=== PATIENT | female | born 1975 | race African-American/Black ===

== ENCOUNTER → 2022-11-07 11:42 | Outpatient (BNVA) | payer MEDICAID, SELFPAY | PROVIDERS: PCP Nurse Practitioner Family; Visit Provider Surgery Vascular Surgery ==

== ENCOUNTER 2024-02-25 13:41 | Outpatient (REF) | payer MEDICAID, SELFPAY | END 2024-02-25 13:42 | disposition home or self-care (01) | LOC: HO.HHCL 13:41 | PROVIDERS: Visit Provider Nurse Practitioner Primary Care | DX: Z13.89 Encounter for screening for other disorder (principal) ==

== ENCOUNTER 2025-01-20 10:30 | Outpatient (REF) | payer MEDICAID, SELFPAY ==
[2025-01-20 11:30] LABS: Hematocrit 42.3 % (37.0-47.0); Hemoglobin 14.4 g/dl (12.0-16.0); Mean Corpuscular HGB Conc 34.0 g/dl (31.0-35.0); Mean Corpuscular Hemoglobin 30.9 pg (27.0-33.0); Mean Corpuscular Volume 90.8 fL (80.0-98.0); NRBC Abs Auto 0.000 X10*3/uL (0.0-0.012); NRBC Pct Auto 0.0 /100WBC (0.0-0.2); Platelet Count 403 X10*3/uL (160-400); Red Blood Count 4.66 X10*6/uL (4.20-5.50); White Blood Count 7.2 X10*3/uL (4.8-10.8)
[2025-01-20 11:58] LABS: Microalbum/Creatinine Ratio Ur 36.0 ug/mg cr (<30)
--- OUTSIDE RECORDS SUMMARY | 2025-01-20 12:06 | XMS_ITS | Clinical Summary ---
Author Organization [employer] Address [address] [facility] [address] [place] [address] Care Team Providers Care Regional Account Director Name Role Phone Mallorie Whalen MD Primary Care Pro vider Allergies Active Allergy Reactions Criticality Noted Date Comments Amoxicillin-Pot Clavulanate 03/03/19 23 Other reaction(s): TONGUE SWELLS, AMOX OKAY when adult > 10 y ago Aspartame 03/08/2022 Oxycodone-Acetaminophen 03/03/2022 Other reaction(s): nausea and vomiting [place] Extract 03/08/2022 Medications * This document contains information received from the source organization and may not represent a complete record from that organization. SUMAtriptan (Imitrex) 25 MG tablet Take 1 tablet by mouth. 05/06/19 11 Active butalbital-acet aminophen-caffe ine (Esgic) 50-325-40 MG capsule Take 1-2 capsules by mouth every 4 (four) hours. 09/03/19 22 Active ibuprofen 800 MG tablet Take 1 tablet by mouth every 8 (eight) hours. Active betamethasone dipropionate (Diprosone) 0.05 % lotion APPLY A FEW DROPS OF LOTION TO THE AFFECTED AREA(S) TOPICALLY TWICE DAILY IN THE MORNING AND AT BEDTIME. RUB IN GENTLY AND COMPLETELY. 60 mL 07/14/19 24 Active sodium chloride (Auglaize) 0.65 % nasal spray ADMINISTER 1 SPRAY INTO EACH NOSTRIL IF NEEDED FOR CONGESTION 15 mL 2 10/15/19 24 Active omega-3 acid ethyl esters (Lovaza) 1 g capsule Take 1 g by mouth Once per day. Active Ascorbic Acid (vitamin C) 250 MG tablet Take 250 mg by mouth Once per day. Active acyclovir (Zovirax) 400 MG tabletIndicatio ns:Herpes TAKE 1 TABLET BY MOUTH EVERY 12 HOURS 60 tablet 2 10/16/19 25 Active citalopram (CeleXA) 20 MG tablet TAKE 2 TABLETS BY MOUTH ONCE DAILY 60 tablet 3 10/18/19 25 Active Cholecalciferol (Vitamin D) 50 MCG (2000 UT) capsule TAKE 1 CAPSULE BY MOUTH EVERY DAY 90 capsule 10/25/19 25 Active cyanocobalamin (Vitamin B-12) 1000 MCG tabletIndicatio ns:Essential hypertension TAKE 1 TABLET BY MOUTH EVERY DAY 90 tablet 10/25/19 25 Active loratadine (Claritin) 10 MG tablet TAKE 1 TABLET BY MOUTH ONCE DAILY FOR ALLERGIES 90 tablet 10/30/19 25 Active losartan (Cozaar) 100 MG tablet Take 1 tablet (100 mg) by mouth Once per day. 90 tablet 12/16/19 25 026 Active amLODIPine (Norvasc) 10 MG tablet Take 1 tablet (10 mg) by mouth Once per day. 90 tablet 1 01/02/20 25 026 Active hydroCHLOROthia zide 12.5 MG tablet Take 1 tablet (12.5 mg) by mouth Once per day. 90 tablet 1 01/02/20 25 026 Active MAGnesium-Oxide 400 (240 Mg) MG tablet Take 1 tablet by mouth once daily 90 tablet 01/06/20 25 Active amLODIPine (Norvasc) 5 MG tabletIndicatio ns:Bilateral leg edema TAKE 1 TABLET BY MOUTH IN THE MORNING 90 tablet 09/30/19 25 025 Discontinued(D ose adjustment) magnesium oxide (Mag-Ox) 400 MG tablet TAKE 1 TABLET BY MOUTH EVERY DAY 90 tablet 10/01/19 25 025 Discontinued Active Problems Problem Noted Date Diagnosed Date Hair loss 03/17/2024 Screening for lung cancer 02/25/2024 Overview (02/25/2024): LDCT re-referred 02/25/24 Postprocedural hypoparathyroidism 01/25/2024 Assessment & Plan (03/22/2024 6:34 AM EST): - continue vitamin D supplementation History of trichomoniasis 06/11/2023 Depression with anxiety 02/16/2023 Assessment & Plan (03/22/2024 6:39 AM EST): - patient states she is stable with current pharmacotherapy and declines additional behavioral health service Assessment & Plan (02/21/2023 9:45 AM EST): During IBH Consult Inez presenting with depressed mood, loss of interests/pleasure , changes in sleep difficulty falling asleep, trouble concentrating, thoughts of worthlessness or guilt, fatigue/loss of energy, inappropriate guilt , worthlessness , difficulty concentrating and excessive worry/anxiety, difficulty controlling worry, restless/keyed up/On edge, easily fatigued, difficulty concentrating/Mind going blank , and irritability; for a period of 18+ mo, for all symptoms in the context of , relationship issues, and housing. Inez experiences anxiety symptoms on and off; housing instability and relationship with partner exacerbates symptoms. Patient reported feeling depressed since she was a kid; able to manage sx. PLAN: (check all that apply) Further services needed, but declined , Behavioral Health Integration Plan Patient Self Plan Patient to utilize skills provided in intervention , Patient to [facility] out to [facility] as [facility], Comply with medication , and Patient to reach out to [facility] as needed. Patient declined referrals for MH services; will connect with clinician during next medical appointment if needed. Overweight (BMI 25.0-29.9) 02/16/2023 Hx of antibiotic allergy 02/16/2023 Skin tag 02/16/2023 Abdominal wall mass 02/16/2023 Health care maintenance 03/08/2022 Overview (09/13/2022): Bilateral Screening Mammo BIRADS 0, inconclusive on 06/23/22 R Breast diagnostic mammo w/ US BIRADS 3 on 07/05/22; repeat 6 months Chronic pain 03/03/2022 Genital herpes simplex 03/03/2022 Overview (03/08/2022): Treats with prophylaxis acyclovir Assessment & Plan (03/22/2024 6:34 AM EST): - continue suppressive therapy with acyclovir History of parathyroidectomy 03/03/2022 Overview (03/08/2022): 2008, affecting Right parathyroid glands Essential hypertension 03/03/2022 Assessment & Plan (03/22/2024 6:33 AM EST): - home blood pressure measurements are elevated - continue working on lifestyle modifications - continue amlodipine 5 mg daily - Losartan dose will be increased to 100 mg. 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 Confirmed with psychopharmacology book that it is a supported augmenting medication. Also safe with mirtazepine. 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 Requests natural remedy Rx evening primrose oil again Educated pt pharmacy might still not fill, may need to buy OTC Hyperlipidemia 08/11/2020 Assessment & Plan (03/22/2024 6:38 AM EST): - continue [place] 3 - the benefit of statin therapy is uncertain at this time; continue lab and risk assessment periodically - work on lifestyle modifications Encounters Date Type Department Care Team Description 01/03/2025 Refill [facility] [address] [place] [address] Mallroie Whalen MD 01/01/2025 9:00 AM EST Office Visit [facility] [address] [place] [phone] Monica Collado DO Essential hypertension (Primary Dx) 01/01/2025 Travel 12/31/2024 Travel 12/31/2024 Telephone [facility] [address] [place], [place] [phone] Mallorie Whalen MD Nurse Triage 12/15/2024 Orders Only [facility] [address] [place] [address] Mallorie Whalen MD Essential hypertension (Primary Dx) 12/15/2024 Refill [facility] [address] [place] [address] Mallorie Whalen MD 11/06/2024 Travel 10/28/2024 Refill [facility] [address] [place] [address] Mallorie Whalen MD 10/24/2024 Refill [facility] [address] [place] [address] Xiang Polo MD Essential hypertension 10/24/2024 Refill [facility] [address] [place] [address] Mallorie Whalen MD Essential hypertension from Last 3 Months Immunizations Immunization Administration Dates Next Due DT (pediatric) 02/19/2001 Hep A, Adult 03/17/2024 INFLUENZA VACCINE QUADRIVALE NT RECOMBINANT PRESERVATIVE FREE RIV4 12/01/2020 Influenza Whole 12/23/2009,12/30/2007,12/04/2006 Influenza injectable quadriv alent preservative free 12/21/2021,10/28/2019,10/21/2019 Influenza, IIV3, injectable 03/23/2009 Influenza, seasonal, injecta ble, preservative free 02/26/2024 Moderna Covid-19 Vaccine 12+ 07/11/2020,06/12/19 21 Pneumococcal Conjugate PCV 20 03/17/2024 TD (adult), 2 Lf tetanus tox oid, preservative free, adsorbed 02/19/2014 Tdap 03/17/2024,05/06/2010 Family History Medical History Relation Name Comments DM2 Father Liver cancer Father alcohol,drug use Father DM2,heart disease Mother breast ca-80s Paternal Grandmother Relation Name Status Comments Father Mother Paternal Grandmother Social History Tobacco Use Types Packs/Day Years Used Date Smoking Tobacco: Every Day Cigarettes 0.3 20 Passive Smoke Exposure: Current Smokeless Tobacco: Current Tobacco Cessation:Ready to Q uit: No; Counseling Given: Yes Comments:Started smoking in 23 y of age ,until now --1 PQT a day ,smoking for 24 years--average smoking 17 cig a day . PQT a year calc 20.4 Alcohol Use Standard Drinks/Week Comments Yes 2 (1 standard drink = 0.6 oz pure alcohol) 1 glass of coctakil a day sometimes 2 Depression Answer Date Recorded Patient Health Questionnaire-9 Score 11 03/17/2024 Patient Health Questionnaire-9 Score 11 03/17/2024 Last PHQ-9: Questionnaire Data Not on file 0 03/17/2024 Housing Stability Answer Date Recorded What is your housing situation today? I have luis traylor 03/06/[address] you li ve. Do you have problems with any of the following? None of the above 03/06/2024 Food Insecurity Answer Date Recorded Within the past 12 months, y ou worried that your food would run out before you got money to buy more: Never True 03/17/2024 Within the past 12 months,th e food you bought just didn't last and you didn't have enough money to get more: Never True Transportation Answer Date Recorded In the past 12 months, has l ack of transportation kept you from medical appts, meetings, work or from getting things needed for daily living? No 03/06/2024 Utilities Answer Date Recorded In the past 12 months, has t he electric, gas, oil or water company threatened to shut off services in your home? No 03/06/2024 Depression Answer Date Recorded Patient Health Questionnaire-2 Score 3 03/17/2024 Internet Access Answer Date Recorded Internet Access Q1 Yes 03/06/2024 Internet Access Q2 Not on file 03/06/2024 Comments No Sex and Gender Information Value Date Recorded Sex Assigned at Female 12/19/2021 10:22 AM EDT Legal Sex Female 10:22 AM EDT Gender Identity Female 12/19/2021 10:22 AM EDT Sexual Orientation Straight 12/19/2021 10 :22 AM EDT Last Filed Vital Signs Vital Sign Reading Time Taken Comments Blood Pressure 150/94 01/01/2025 9:35 AM EST Pulse 94 01/01/2025 9:10 AM EST Temperature 36.7 C (98.1 F) 01/01/2025 9:10 AM EST Respiratory Rate 21 01/01/2025 9:10 AM EST Oxygen Saturation 99% 01/01/2025 9:10 AM EST Inhaled Oxygen Concentration - - Weight 81.6 kg (180 lb) 01/01/2025 9:10 AM EST Height 167.6 cm (5' 6 ) 01/01/2025 9:10 AM EST Body Mass Index 29.05 01/01/2025 9:10 AM EST Plan of Treatment Upcoming Encounters Date Type Department Care Team (Late st Contact Info) Description 01/23/2025 1:00 PM EST Clinical Support [facility] [address] [place] [phone] 03/10/2025 10:45 AM EST Office Visit [address] [address] Mallorie Whalen MD [address] [place] [phone] Health Maintenance Due Date Last Done Comments CT Colonography 1975 Colonoscopy 1973 Colorectal Cancer Screening 1975 FIT DNA/Cologuard 1975 FIT 1975 FOBT 1975 Sigmoidoscopy 1975 Family Planning (PISQ) 1988 Zoster Vaccines (1 of 2) 2023 Depression Monitoring 09/14/2024 03/17/2024, 025 Mammogram 03/03/2025 03/03/2024, 02/19, 03/01/2023, Additional history exists Alcohol/Substance Use Screening 03/17/2025 03/17/2024 SDOH Screening 03/17/2025 03/17/2024 Disability Screening 11/06/2025 11/06/2024 Tobacco Screening 01/01/2026 01/01/2025 Lipid Panel 03/17/2029 03/17/2024, 02/21, 03/03/2022, Additional history exists DTaP/Tdap/Td Vaccines (4 - Td or Tdap) 03/17/2034 03/17/2024, 02/19/2014, 05/06/2010, Additional history exists RSV Patients and Patients Aged 60 years or older (1 - 1-dose 75+ series) 2048 HIV Screening Completed 03/21/2023, 02/19, 03/01/2020 Hepatitis C Screening Completed 03/21/2023 , 03/03/2022, 03/01/2020 Cervical Cancer Screening Discontinued HPV/Cotest Discontinued 04/19/2023 Pap Smear Discontinued 04/19/2023, 04/19/2023 Hepatitis A Vaccines Aged Out 03/17/2024 No long er eligible based on patient's age to complete this topic Pneumococcal Vaccine: 50+ Years Completed 03/17/2024 COVID-19 Vaccine Completed 11/10/2024, , 12/21/2021, Additional history exists Influenza Vaccine Completed 11/10/2024, , 12/19/2022, Additional history exists HIB Vaccines Aged Out No longer eligi ble based on patient's age to complete this topic HPV Vaccines Aged Out No longer eligi ble based on patient's age to complete this topic Hepatitis B Vaccines Discontinued IPV Vaccines Aged Out No longer eligi ble based on patient's age to complete this topic Meningococcal B Vaccine Aged Out No l onger eligible based on patient's age to complete this topic Meningococcal Vaccine Aged Out No cristiane jennifer eligible based on patient's age to complete this topic RSV under 20 months Aged Out No longe r eligible based on patient's age to complete this topic Rotavirus Vaccines Aged Out No longer eligible based on patient's age to complete this topic Procedures Procedure Name Priority Date/Time Associated Diagnosis Comments ALBUMIN, RANDOM URINE W/CREATININE Routine 01/20/2025 10:39 AM EST Essential hypertension CBC Routine 01/20/2025 10:39 AM EST Essential hypertension LIPID PANEL WITH REFLEX TO DIRECT LDL Routine 03/17/2024 9:50 AM EST Essential hypertension Screening for lipid disorders BI MAMMOGRAM SCREENING TOMOSYNTHESIS BILATERAL Routine 03/03/2024 1:30 PM EST HPV MRNA E6/E7 REFLEX TO HPV 16, 18/45 Routine 04/19/2023 11:44 AM EST IMAGE-GUIDED PAP W/AGE BASED SCR,W/CT/NG/TRICH Routine 04/19/2023 11:44 AM EST Cervical cancer screening Encntr screen for infections w sexl mode of transmiss HEPATITIS C AB W/REFL TO HCV RNA, QN, PCR Routine 03/21/2023 1:39 PM EST Annual physical exam HIV 1/2 ANTIGEN/ANTIBODY, FOURTH GENERATION W/RFL Routine 03/21/2023 1:39 PM EST Annual physical exam from Last 3 Months or Most Recently Relevant to Health Maintenance Results * (ABNORMAL) Albumin, Random Urine W/Creatinine (01/20/2025 10:39 AM EST) Creatinine, Urine 110.99 mg/dL [facility] Microalbumin Urine 40.0 mg/L [facility] Microalbum Creatinine Ratio Ur 36.0(H) <30 ug/mg cr [facility] Comment:Albumin/Creatinine R atio Reference Ranges: Normal: < 30 ug/mg creatinine Microalbuminuria: 30 - 300 ug/mg creatinineClinical Albuminuria: > 300 ug/mg creatinine Urine (Urine, Random) 01/20/2025 10:39 AM EST 01/20/2025 11:20 AM EST Monica Collado DO LAB URINE ORDERABLES Final R esult [facility] [address] [place] [phone] * (ABNORMAL) CBC (01/20/2025 10:39 AM EST) White Blood Count 7.2 4.8 - 10.8 X10*3/uL [facility] Red Blood Count 4.66 4.20 - 5.50 X10*6/uL [facility] Hemoglobin 14.4 12.0 - 16.0 g/dl [facility] Hematocrit 42.3 37.0 - 47.0 % [facility] Mean Corpuscular Volume 90.8 80.0 - 98.0 fL [facility] Mean Corpuscular Hemoglobin 30.9 27.0 - 33.0 pg [facility] Mean Corpuscular HGB Conc 34.0 31.0 - 35.0 g/dl [facility] Red Cell Distribution Width 12.6 11.0 - 16.0 % [facility] Platelet Count 403(H) 160 - 400 X10*3/uL [facility] Mean Platelet Volume 10.1 9.4 - 12.3 fL [facility] NRBC Pct Auto 0.0 0.0 - 0.2 /100WBC [facility] NRBC Abs Auto 0.000 0.0 - 0.012 X10*3/uL [facility] Blood Venous blood specimen / Unknown 01/20/2025 10:39 AM EST 01/20/2025 11:24 AM EST Monica Collado DO LAB BLOOD ORDERABLES Final R esult Performing Organization Address [facility] Co de Phone Number [facility] [address] [place] [phone] * (ABNORMAL) Lipid Panel with Reflex to Direct LDL (03/17/2024 9:50 AM EST) Triglycerides 69 <150 mg/dL [facility] Comment:Desirable Triglyceri de: less than 150 mg/dLBorderline High Triglyceride 150-199 mg/dLHigh Triglyceride: 200-499 mg/dLVery High Triglyceride: greater than or equal to 5OO mg/dL Cholesterol 198 <200 mg/dL [facility] Comment:Desirable Cholestero l: less than 200 mg/dLBorderline High Cholesterol: 200-239 mg/dLHigh Cholesterol: greater than 239 mg/dL LDL Cholesterol Calculated 126(H) <100 mg/dL [facility] Comment:Desirable LDL: less than 100 mg/dLNear Optimal/Above Optimal LDL: 110- 129 mg/dLBorderline High LDL: 130-159 mg/dLHigh LDL: 160-189 mg/dLVery High LDL: greater than or equal to 190 mg/dL HDL Cholesterol 59 >40 mg/dL [facility] Comment:Desirable HDL: great er than 40 mg/dL Note: This HDL assay may give artificially low results in patients with liver disease. Blood 03/17/2024 9:50 AM EST 03/17/2024 11:25 AM EST Kelin Sawant MD LAB BLOOD ORDERABLES Final Resul t Performing Organization Address [facility] Co de Phone Number [facility] [address] [place] [phone] * BI Mammogram Screening Tomosynthesis Bilateral (03/03/2024 1:30 PM EST) Anatomical Region Laterality Modality Breast Bilateral Mammography 03/03/2024 1:30 PM EST Narrative 03/11/2024 4:25 PM EST [facility] [address] [place] [address] Mammography Report Signed Patient: Inez Dupree MR#: [id number] : 1975 Acct:[id number] Age/Sex: 48 / F ADM Date: 03/03/24 Loc: HO.MAMMO Attending Dr: Mallorie Rose MD Ordering Physician: Mallorie Whalen MD Re sults: 1Negative Date of Service: 03/03/24 Follow Up: 1 Year From Orig inal Mammogram Procedure(s): MM tomosynthesis screening BI Accession Number(s): [id number] cc: Mallorie Whalen MD EXAMINATION: MM SCREENING DIGITAL BREAST TOMOSYNTHESIS, BILATERAL CLINICAL INFORMATION: Screening. Asymptomatic. COMPARISON: Mammography: Comparison is made with available priors TECHNIQUE: Digital breast mammography with tomosynthesis is performed in both the craniocaudal and mediolateral oblique views along with computer-aided detection (CAD). FINDINGS: There are scattered areas of fibroglandular density (ACR BI-RADS breast composition Category b). There are no significant masses, abnormal calcifications, or other abnormalities. MM/MM tomosynthesis screening BI IMPRESSION: No mammographic evidence of malignancy. ASSESSMENT: BI-RADS BI-RADS 1 - Negative RECOMMENDATION: Routine annual mammography screening. 1 year F/U This examination should not preclude the clinical evaluation of a suspicious palpable abnormality. This patient's information was entered into a reminder system with a target due date for their next mammogram. Electronically signed by: Maya Lloyd DO 03/11/2024 04:22 PM [facility] Dictated By: Maya Lloyd DO Signed By: <Electronically signed by Maya Lloyd DO in OV> 03/11/24 1622 DD/ 1330 TD/TT: 03/03/24 1345 Wrecker Operator: Procedure Note Donotuseinterpreter, Image - 04/24/2024 [facility] [address] [place] [address] Dr. [place], [place] [address] Mammography Report Signed Patient: Inez Dupree BMR#: [id number] : 1975Acct:[id number] Age/Sex: 48 / FADM Date: 03/03/24 Loc: HO.MAMMO Attending Dr: Mallorie Rose MD Ordering Physician: Mallorie Whalen sults: 1Negative Date of Service: 03/03/24Follow Up: 1 Year From Orig ina Mammogram Procedure(s): MM tomosynthesis screening BI Accession Number(s): [id number] cc: Mallorie Whalen MD EXAMINATION: MM SCREENING DIGITAL BREAST TOMOSYNTHESIS, BILATERAL CLINICAL INFORMATION: Screening. Asymptomatic. COMPARISON: Mammography: Comparison is made with available priors TECHNIQUE: Digital breast mammography with tomosynthesis is performed in both the craniocaudal and mediolateral oblique views along with computer-aided detection (CAD). FINDINGS: There are scattered areas of fibroglandular density (ACR BI-RADS breast composition Category b). There are no significant masses, abnormal calcifications, or other abnormalities. MM/MM tomosynthesis screening BI IMPRESSION: No mammographic evidence of malignancy. ASSESSMENT: BI-RADS BI-RADS 1 - Negative RECOMMENDATION: Routine annual mammography screening. 1 year F/U This examination should not preclude the clinical evaluation of a suspicious palpable abnormality. This patient's information was entered into a reminder system with a target due date for their next mammogram. Electronically signed by: Maya Lloyd DO 03/11/2024 04:22 PM EST Dictated By: Maya Lloyd DO Signed By: <Electronically signed by Maya Lloyd DO in OV> 03/11/24 1622 DD/ 1330 TD/TT: 03/03/24 1345 Wrecker Operator: us Mallorie Rose MD IMG BI PROCEDURES Edited Result - Final * (ABNORMAL) Image-Guided Pap with Age-Based Screening??with CT/NG,??Trichomonas (04/19/2023 11:44 AMEST) Trichomonas (NAAT) DETECTED(A) NOT DETECTED [facility] Comment:The analytical perfo rmance characteristics of thisassay have been determined by Owned it. Themodifications have not been cleared or approved bythe FDA. This assay has been validated pursuant to theIA regulations and is used for clinical purposes.For additional information, please refer [email or web address](This link is being provided for information/educational purposes only.)THIS TEST WAS PERFORMED AT:[facility] [address] [phone] WALLACE MD CTNG Ref Lab NOT DETECTED NOT DETECTED [facility] NG Ref Lab NOT DETECTED NOT DETECTED [facility] Pap Vial 04/19/2023 11:4 4 AM EST 04/24/2023 10:15 AM EST Charisma Syed [facility] CYTOLOGY ORDERABLES F inal Result [facility] [address] [place] [phone] * HPV mRNA E6/E7 w/Reflex to HPV Genotypes 16, 18/45 (04/19/2023 11:44 AM EST) HPV nRNA E6/E7 Not Detected Not Detected [facility] Comment:Methodology: Transcr iption-Mediated AmplificationThis assay detects E6/E7 viral messenger RNA (mRNA) from 14high-risk HPV types (16,18,31,33,35,39,45,51,52,56,58,59,66,68).Cervical sources are required for HPV testing.If a vaginal source from a patient who has had atotal hysterectomy with removal of cervix wassubmitted, please contact the testing laboratoryfor alternative testing options.For additional information, please refer [email or web address](This link if provided for information/educational purposes only.)THIS TEST WAS PERFORMED AT:[facility] [address] [phone] WALLACE MD HPV mRNA E6/E7 TNP [facility] HPV 16 RNA TNP [facility] HPV 18/45 RNA [facility] 04/19/2023 11:4 4 AM EST 04/20/2023 11:30 AM EST us Charisma Syed CNM LAB CYTOLOGY ORDERABLES F inal Result Performing Organization Address [facility]/ZIP Co de Phone Number [facility] [address] [place] [phone] * Hepatitis C Antibody with Reflex to HCV, RNA, Quantitative, Real-Time PCR (03/21/2023 1:39 PM EST) Hepatitis C Antibody Nonreactive Nonreactive [facility] Comment:Antibodies to HCV no t detected; does not exclude early acuteHCV infection. Blood Venous blood specimen / Unknown 03/21/2023 1:39 PM EST 03/21/2023 4:01 PM EST us Mallorie Rose MD LAB BLOOD ORDERAB LES Final Result Performing Organization Address [facility]/ZIP Co de Phone Number [facility] [address] [place], [place] [phone] * HIV-1/2 Antigen and Antibodies, Fourth Generation, with Reflexes (03/21/2023 1:39 PM EST) HIV AB/AG Nonreactive Nonreactive [facility] Comment:HIV-1 p24 Ag and/or HIV-1/HIV-2 Ab not detected.A test result that is nonreactive does not exclude thepossibility of exposure to or infection with HIV-1 and/orHIV-2. Nonreactive results in this assay for individualswith prior exposure to HIV-1 and/or HIV-2 may be due toantigen and antibody levels that are below the limit ofdetection of this assay.The [employer] HIV Ag/Ab Combo assay result andsupplemental assay results should be interpreted inconjunction with the patient's clinical presentation,history and other laboratory results. If the results areinconsistent with clinical evidence, additional testing issuggested to confirm the result. Blood Venous blood specimen / Unknown 03/21/2023 1:39 PM EST 03/21/2023 4:01 PM EST Mallorie Rose MD LAB BLOOD ORDERAB LES Final Result [facility] [address] [place] [address] [phone] from Last 3 Months or Most Recently Relevant to Health Maintenance [facility] Care Teams Regional Account Director Relationship Specialty Start Date End Date Mallorie Whalen MD [address] [place] [id number] PCP - General Internal Medicine 02/15/23
--- OUTSIDE RECORDS SUMMARY | 2025-01-20 12:06 | XMS_ITS | Encounter Summary ---
Author Organization [employer] Address [address] [place] [address] 7 [place] [address] Care Team Providers Care Aeronautical Inspector Name Role Phone Mallorie Whalen MD Primary Care Pro vider Reason for Visit * Reason Comments Med Refill Encounter Details Date Type Department Care Team ([facility] st Contact Info) Description 08/07/2024 Refill [facility] [address] [place] [address] Mallorie Whalen MD [address] [place] [address] Social History Tobacco Use Types Packs/Day Years Used Date Smoking Tobacco: Every Day Cigarettes 0.3 20 Passive Smoke Exposure: Current Smokeless Tobacco: Current Comments:Started smoking in 23 y of age [...] Orientation Straight 12/19/2021 10 :22 AM EDT documented as of this encounter Plan of Treatment Upcoming Encounters Date Type Department Care Team (Late st Contact Info) Description 01/23/2025 1:00 PM EST Clinical Support [address] [address] 03/10/2025 10:45 AM EST Office Visit [address] [address] Mallorie Whalen MD [address] [place] [phone] documented as of this encounter Visit Diagnoses Not on filedocumented in this encounter Additional Health Concerns Assessment Noted Time PHQ-9 Depression Total Score: 11 025 9:41 AM EST documented as of this encounter Care Teams Aeronautical Inspector Relationship Specialty Start Date End Date Mallorie Whalen MD [address] [place] [id number] PCP - General Internal Medicine 02/15/23 documented as of this encounter
--- OUTSIDE RECORDS SUMMARY | 2025-01-20 12:06 | XMS_ITS | Encounter Summary ---
Author Organization [employer] Address [address] [place] [address] [address] [place] [address] Care Team Providers Care Traffic And Transport Planner Name Role Phone Cathy Fong Primary Care Provider Mallorie Donnelly MD Primary Care Pro vider Reason for Visit * Reason Comments Med Refill Encounter Details Date Type Department Care Team (Late Contact Info) Description 12/13/2022 Refill [facility] [address] [place] [id number] Cathy Fong FNP Social History Tobacco Use Types Packs/Day Years Used Date Smoking Tobacco: Every Day Cigarettes 1 20 Smokeless Tobacco: Current Alcohol Use Standard Drinks/Week Comments Yes 2 (1 standard drink = 0.6 oz pur e alcohol) Depression Answer Date Recorded Patient Health Questionnaire-9 Score 0 03/03/2022 Depression Answer Date Recorded Patient Health Questionnaire-2 Score 0 03/03/2022 Comments Unknown Sex and Gender Information Value Date Recorded Sex Assigned at Female 12/19/2021 10:22 AM EDT Legal Sex Female 10:22 AM EDT Gender Identity Female 12/19/2021 10:22 AM EDT Sexual Orientation Straight 12/19/2021 10 :22 AM EDT documented as of this encounter Plan of Treatment Upcoming Encounters Date Type Department Care Team (Late Contact Info) Description 01/23/2025 1:00 PM EST Clinical Support [facility] [address] [place] [phone] 03/10/2025 10:45 AM EST Office Visit [address] [address] Mallorie Whalen MD [address] [place] [address] documented as of this encounter Visit Diagnoses Not on filedocumented in this encounter Additional Health Concerns Assessment Noted Time PHQ-9 Depression Total Score: 0 03/03/19 23 3:24 PM EST documented as of this encounter Care Teams Traffic And Transport Planner Relationship Specialty Start Date End Date Cathy Fong FNP PCP - General Family Medicine 01/04/23 02/04/23 Mallorie Whalen MD [address] [place] [address] PCP - General Internal Medicine 02/15/23 documented as of this encounter
--- OUTSIDE RECORDS SUMMARY | 2025-01-20 12:06 | XMS_ITS ---
Author Name [facility] Organization Unknown Encounters Encounter Type Encounter Reason Primary Diagnosis Location Date Ambulatory [facility] 08/10/2022 Care Team Organization Name Specialty Phone Email Start Date End Da te [facility] [employer] NO PCP Primary Care 08/10/2022 08/10/2022 [facility] PCP,No Primary Care 08/10/2022
--- OUTSIDE RECORDS SUMMARY | 2025-01-20 12:06 | XMS_ITS | Encounter Summary ---
Author Organization [employer] Address [address] [place] [address] Care Team Providers Care Parlor Chaperone Name Role Phone Mallorie Whalen MD Primary Care Pro vider Encounter Details Date Type Department Care Team ([facility] st Contact Info) Description 08/02/2023 Orders Only [facility] [address] [place], [place] [phone] Charisma Syed, [facility] [address] [place] [address] Social History Tobacco Use Types Packs/Day Years Used Date Smoking Tobacco: Every Day Cigarettes 0.3 20 Smokeless Tobacco: Current Comments:Started smoking in 23 y of age ,until now --1 PQT a day ,smoking for 24 years--average smoking 17 cig a day . PQT a year calc 20.4 Alcohol Use Standard Drinks/Week Comments Yes 2 (1 standard drink = 0.6 oz pure alcohol) 1 glass of coctakil a day sometimes 2 Depression Answer Date Recorded Patient Health Questionnaire-9 Score 17 02/15/2023 Patient Health Questionnaire-9 Score 17 02/15/2023 Last PHQ-9: Questionnaire Data Not on file 1 04/18/2022 Housing Stability Answer Date Recorded What is your housing situation today? I have luis traylor 02/15/[address] you li ve. Do you have problems with any of the following? None of the above 02/15/2023 Food Insecurity Answer Date Recorded Within the past 12 months, y ou worried that your food would run out before you got money to buy more: Never True 02/15/2023 Within the past 12 months,th e food you bought just didn't last and you didn't have enough money to get more: Never True Transportation Answer Date Recorded In the past 12 months, has l ack of transportation kept you from medical appts, meetings, work or from getting things needed for daily living? No 02/15/2023 Utilities Answer Date Recorded In the past 12 months, has t he electric, gas, oil or water company threatened to shut off services in your home? No 02/15/2023 Depression Answer Date Recorded Patient Health Questionnaire-2 Score 6 02/15/2023 Comments No Sex and Gender Information Value [...] Description 01/23/2025 1:00 PM EST Clinical Support [facility] [address] [place] [phone] 03/10/2025 10:45 AM EST Office Visit [facility] [address] [place] [phone] Mallorie Whalen MD [address] [place] [address] documented as of this encounter Visit Diagnoses Not on filedocumented in this encounter Additional Health Concerns Assessment Noted Time PHQ-9 Depression Total Score: 17 023 3:17 PM EST documented as of this encounter Care Teams Parlor Chaperone Relationship Specialty Start Date End Date Mallorie Whalen MD [address] [place] [id number] PCP - General Internal Medicine 02/15/23 documented as of this encounter
--- OUTSIDE RECORDS SUMMARY | 2025-01-20 12:06 | XMS_ITS | Encounter Summary ---
Author Organization [id number] Address [address] [facility] 7t [place] [address] Care Team Providers Care Color Maker Name Role Phone Cathy Fong Primary Care Provider Kavya Cathy Gonzalez Primary Care Provider Kavya vaMallorie Rodriguez MD Primary Care Pro vider Encounter Details Date Type Department Care Team ([facility] Contact Info) Description 08/04/2022 Abstract [facility] [address] [place] [address] Cathy Fong FNP Social History Tobacco Use [...] Orientation Straight 12/19/2021 10 :22 AM EDT COVID-19 Exposure Response Date Recorded In the last 10 days, have yo u been in contact with someone who was confirmed or suspected to have Coronavirus/COVID-19? No / Unsure 07/11/2022 1:12 PM EDT documented as of this encounter Plan of Treatment Upcoming Encounters Date Type Department Care Team ([facility] Contact Info) Description 01/23/2025 1:00 PM EST Clinical Support [address] [address] 03/10/2025 10:45 AM EST Office Visit [address] [address] Mallorie Whalen MD [address] [place] [phone] documented as of this encounter Visit Diagnoses Not on filedocumented in this encounter Additional Health Concerns Assessment Noted Time PHQ-9 Depression Total Score: 0 03/03/19 3:24 PM EST documented as of this encounter Care Teams Color Maker Relationship Specialty Start Date End Date Cathy Fong FNP PCP - General Family Medicine 10/16/21 09/12/22 Cathy Fong FNP PCP - General Family Medicine 01/04/23 02/04/23 Mallorie Whalen MD [address] [place] [phone] PCP - General Internal Medicine 02/15/23 documented as of this encounter
--- OUTSIDE RECORDS SUMMARY | 2025-01-20 12:06 | XMS_ITS | Encounter Summary ---
Author Organization [employer] Address [address] [facility] 7 [place] [address] Care Team Providers Care Invas Tech Name Role Phone Mallorie Whalen MD Primary Care Pro vider Reason for Visit * Reason Onset Date Comments Appointment Request 02/22/2024 Encounter Details Date Type Department Care Team ([facility] st Contact Info) Description 02/22/2024 Telephone [facility] [address] [place], [place] [phone] Mallorie Whalen MD [address] [place] [address] Appointment Request Social History Tobacco Use Types Packs/Day Years [...] AM EDT documented as of this encounter Miscellaneous Notes * Telephone Encounter - Justa Franks - 02/22/2024 1:48 PM EST Tc from pt requesting call back to schedule physical appt. documented in this encounter Plan of Treatment Upcoming Encounters Date Type Department Care Team (Late st Contact Info) Description 01/23/2025 1:00 PM EST Clinical Support [address] [address] 03/10/2025 10:45 AM EST Office Visit [address] [address] Mallorie Whalen MD [address] [place] [phone] documented as of this encounter Visit Diagnoses Not on filedocumented in this encounter Additional Health Concerns Assessment Noted Time PHQ-9 Depression Total Score: 17 023 3:17 PM EST documented as of this encounter Care Teams Invas Tech Relationship Specialty Start Date End Date Mallorie Whalen MD [address] [place] [phone] PCP - General Internal Medicine 02/15/23 documented as of this encounter
[2025-01-20 14:00] LABS: Alanine Aminotransferase 30 U/L (0-31); Albumin Level 4.7 g/dL (3.5-5.0); Alkaline Phosphatase 92 U/L (39-117); Anion Gap 12 (12-20); Aspartate Amino Transferase 25 U/L (5-31); Blood Urea Nitrogen 11 mg/dL (9-16); Calcium 9.3 mg/dL (8.4-10.2); Carbon Dioxide 26 mmol/L (22-29); Chloride 105 mmol/L (96-108); Cholesterol 219 mg/dL (<200); Estimated Glomerular Filt Rate > 60; HDL Cholesterol 64 mg/dL (>40); Potassium 3.8 mmol/L (3.3-5.1); Sodium 139 mmol/L (135-145); Total Protein 7.7 g/dL (6.5-8.0); Triglycerides 98 mg/dL (<150)
[2025-01-20 14:16] LABS: Free T4 (Free Thyroxine) 1.00 ng/dL (0.71-1.85); Thyroid Stimulating Hormone 0.83 uIU/mL (0.32-4.0)
== END 2025-01-20 10:31 | disposition home or self-care (01) ==
LOC: HO.HHCL 10:30
PROVIDERS: Visit Provider Family Medicine
DX: I10 Essential (primary) hypertension (principal)
CPT/HCPCS: 36415; 80053; 80061; 80076; 82043; 82248; 82306; 82570; 83036; 84439; 84443; 85027